=== PATIENT | female | born 1990 | race African-American/Black ===

== ENCOUNTER 2017-07-05 12:10 | Emergency (ER) | payer OTHER ==
[~2017-07-05] VITALS: Ht 160 cm; Wt 70.8 kg
[~2017-07-05 12:10] MED LIST: HYDROXYZINE HCL50 M1 PO; HYDROXYZINE50 MG PO; IBUPROFEN800 MG PO; PRENATAL1 TA2 PO; REGLAN10 M1 PO; TRIAMCINOLONE A80 GM TOP
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
[2017-07-05 13:49] LABS: HEMATOCRIT 36.5 % (37-47); MEAN CORPUSCULAR HGB 30.3 PG (27.0-31.0); MEAN CORPUSCULAR HGB CONC 34.1 G/DL (33.0-37.0); MEAN CORPUSCULAR VOLUME 88.8 FL (81.0-99.0); MEAN PLATELET VOLUME 8.5 FL (7.4-10.4); PLATELET COUNT 387 /CUMM (130-400); RBC DISTRIBUTION WIDTH 12.6 % (11.5-14.5); RED BLOOD CELL CT 4.11 /CUMM (4.20-5.40); WHITE BLOOD CELL COUNT 15.3 /CUMM (4.8-10.8)
[2017-07-05 13:52] LABS: ABSOLUTE BASOPHIL COUNT 0 /CUMM (0.0-0.2); ABSOLUTE EOSINOPHIL COUNT 0.1 /CUMM (0.0-0.7); ABSOLUTE LYMPH COUNT 2.4 /CUMM (1.2-3.4); ABSOLUTE MONOCYTE COUNT 0.8 /CUMM (0.10-0.60); BASOPHIL % 0.3 % (0.0-2.0); EOSINOPHIL % 0.3 % (0-5); GRANULOCYTE % 78.3 % (42.2-75.2)
--- NOTE | 2017-07-05 15:26 | CT SCAN REPORT ---
EXAMINATION: CT ABDOMEN AND PELVIS WITH CONTRAST CLINICAL INFORMATION: Pain about incision site. Recent abdominoplasty. COMPARISON: 11/13/2008. TECHNIQUE: Contiguous axial thin section helical images of the abdomen and pelvis were performed following the administration of 94 mL of intravenous Optiray 320. The data set was reformatted in the coronal and sagittal planes and reviewed on an independent workstation. DLP: 516 mGy-cm. FINDINGS: There is mild dependent bibasilar atelectasis. The visualized lung bases are otherwise clear. The visualized portions of the heart are unremarkable. The liver is of normal size and attenuation without focal lesions nor intrahepatic biliary ductal dilation. A normal gallbladder is identified. There is no wall thickening or discernible pericholecystic fluid. The spleen, pancreas, adrenal glands are unremarkable. Both kidneys are of normal size and attenuation without hydronephrosis or nephrolithiasis. Following the administration of IV contrast, prompt symmetric nephrograms are displayed. There is no abdominal free fluid. There is neither mesenteric nor retroperitoneal lymphadenopathy. There is a postoperative appearance to the abdomen with 2 drains presence within the subcutaneous tissues overlying the anterior abdominal wall. There is a small amount of fluid within the abdominal rectus musculature posterior to the anterior abdominal wall. Normal unopacified loops of small and large bowel are identified. There is a 1.9 cm right ovarian cyst. There is a [id number] amount of pelvic free fluid. The urinary bladder is unremarkable. There is neither pelvic nor inguinal lymphadenopathy. Bone windows: Neither sclerotic nor lytic bone lesions are identified. IMPRESSION: Small amount of fluid attenuation identified within the replaced abdominal rectus musculature, possibly territory account representative of seroma or hematoma. This measures approximately 2.5 x 2.5 cm in axial dimension extending approximately 9 cm cranial to caudad. 19 mm right ovarian cyst. Kdqhh-br-aepwmszm amount of pelvic free fluid. Anterior abdominal drains in place. Dependent bibasilar atelectasis.
[2017-07-05] MEDS ORDERED: ZOFRAN ODT4 M1 SL (16:45)
[2017-07-05] MEDS ORDERED: VALIUM2 M1 PO (16:45)
[2017-07-05] MEDS ORDERED: PERCOCET 5-3251 EACH PO (16:45)
[2017-07-05 17:10] VITALS: BP 123/64
== END 2017-07-05 17:13 ==
LOC: ERH 12:10
PROVIDERS: Physician Assistant Medical
DX: R10.30 Lower abdominal pain, unspecified (principal)
CPT/HCPCS: 74177; 96374; 96375; J0131; J2405